=== PATIENT | female | born 2000 | race Caucasian/White ===

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

== ENCOUNTER 2022-08-09 02:49 | Emergency (ER) | payer BC ==
[2022-08-09] MEDS ORDERED: Acetaminophen 325 MG Tab PO ONE ×2 (04:21→04:45)
[2022-08-09] MEDS ORDERED: Acetaminophen 325 MG/10.15 ML ML PO ONE (04:49)
== END 2022-08-09 05:58 | disposition home or self-care (01) ==
LOC: JD.ED 02:49
DX: R25.9 Unspecified abnormal involuntary movements (principal); Z88.2 Allergy status to sulfonamides
CPT/HCPCS: 36415; 80053; 80307; 82607; 83735; 84443; 84703; 85025; 86140; 99284; A9270